=== PATIENT | female | born 1970 | race Caucasian/White ===

== ENCOUNTER 2018-04-09 18:00 | Outpatient (REF) | payer MEDICARE, MEDICAID, SELFPAY ==
[2018-04-09 22:55] LABS: ALT 25 U/L (12-78); AST 24 U/L (15-37); Albumin 3.2 g/dL (3.4-5.0); Alkaline Phosphatase 207 U/L (46-116); Anion Gap 4.8 mmol/L (3-11); BUN 15 mg/dL (7-18); Bilirubin, Total 0.3 mg/dL (0.2-1.0); CO2 29.2 mmol/L (21.0-32.0); CREATININE 0.83 mg/dL (0.55-1.02); Calcium 8.7 mg/dL (8.5-10.1); Chloride 104 mmol/L (98-107); Glucose 93 mg/dL (70-100); Magnesium 1.8 mg/dL (1.8-2.4); Potassium 4.3 mmol/L (3.5-5.1); Sodium 138 mmol/L (136-145); Total Protein 7.4 g/dL (6.4-8.2)
== END 2018-04-09 18:20 ==
LOC: NCHCN 18:00
PROVIDERS: PCP Family Medicine; Visit Provider Family Medicine
DX: K74.3 Primary biliary cirrhosis (principal); E87.6 Hypokalemia; E83.42 Hypomagnesemia
CPT/HCPCS: 80053; 83735

== ENCOUNTER 2018-08-06 16:54 | Outpatient (REF) | payer MEDICARE, MEDICAID, SELFPAY ==
[2018-08-06 21:17] LABS: HCT 37.6 % (36.0-46.0); Mean Corp. HGB Concentration 31.9 g/dL (32.0-36.0); Mean Corpuscular Hemoglobin 30.5 pg (27.0-33.0); Mean Corpuscular Volume 95.7 fL (80-95); Mean Platelet Volume 9.7 fL (8.0-11.0); Platelet Count 391 x1000/uL (130-400); RBC 3.93 m/cumm (4.00-5.20); White Blood Cell Count 9.85 k/cumm (4.4-10.8)
[2018-08-06 21:34] LABS: Hemoglobin A1C 5.6 % (4.5-6.2)
[2018-08-06 21:39] LABS: ALT 45 U/L (12-78); AST 38 U/L (15-37); Albumin 3.3 g/dL (3.4-5.0); Alkaline Phosphatase 200 U/L (46-116); BUN 18 mg/dL (7-18); Bilirubin, Total 0.3 mg/dL (0.2-1.0); Calcium 8.6 mg/dL (8.5-10.1); Chloride 104 mmol/L (98-107); Cholesterol 249 mg/dL (50-200); Estimated GFR 58.93 (mL/min/1.73m2); Glucose 106 mg/dL (70-100); HDL Cholesterol 53 mg/dL (40-60); LDL CHOLESTEROL 154 mg/dL (<100); Magnesium 1.8 mg/dL (1.8-2.4); Potassium 3.6 mmol/L (3.5-5.1); Sodium 141 mmol/L (136-145); TSH 3.16 uIU/mL (0.358-3.74); Total Protein 7.2 g/dL (6.4-8.2); Triglyceride 211 mg/dL (30-150)
[2018-08-06 21:51] LABS: PHOSPHORUS 3.3 mg/dL (2.6-4.7)
[2018-08-07 07:59] LABS: Vitamin D 25 Total 6.9 ng/ml (30-100)
== END 2018-08-06 17:14 ==
LOC: NCHCN 16:54
PROVIDERS: PCP Family Medicine; Visit Provider Family Medicine
DX: K74.3 Primary biliary cirrhosis (principal); E03.9 Hypothyroidism, unspecified; E83.42 Hypomagnesemia; E66.2 Morbid (severe) obesity with alveolar hypoventilation; Z86.2 Personal history of diseases of the blood and blood-forming organs and certain disorders involving the immune mechanism; Q61.3 Polycystic kidney, unspecified
CPT/HCPCS: 80053; 80061; 82306; 83721; 85027; 83036; 83735; 84100; 84443

== ENCOUNTER 2018-10-08 17:47 | Outpatient (REF) | payer MEDICARE, MEDICAID, SELFPAY ==
[2018-10-08 22:30] LABS: ALT 27 U/L (12-78); AST 24 U/L (15-37); Albumin 3.5 g/dL (3.4-5.0); Alkaline Phosphatase 190 U/L (46-116); Anion Gap 7.9 mmol/L (3-11); BUN 18 mg/dL (7-18); Bilirubin, Total 0.2 mg/dL (0.2-1.0); CO2 30.1 mmol/L (21.0-32.0); CREATININE 0.86 mg/dL (0.55-1.02); Calcium 9.1 mg/dL (8.5-10.1); Chloride 103 mmol/L (98-107); Glucose 76 mg/dL (70-100); Potassium 3.9 mmol/L (3.5-5.1); Sodium 141 mmol/L (136-145); Total Protein 7.1 g/dL (6.4-8.2)
[2018-10-09 06:43] LABS: Vitamin D 25 Total 22.5 ng/ml (30-100)
== END 2018-10-08 18:07 ==
LOC: NCHCN 17:47
PROVIDERS: PCP Family Medicine; Visit Provider Family Medicine
DX: K74.3 Primary biliary cirrhosis (principal); E55.9 Vitamin D deficiency, unspecified; Q61.3 Polycystic kidney, unspecified
CPT/HCPCS: 80053; 82306

== ENCOUNTER 2019-09-04 11:36 | Outpatient (REF) | payer MEDICARE, MEDICAID, SELFPAY ==
[2019-09-04 20:54] LABS: HCT 42.9 % (36.0-46.0); HGB 13.7 g/dL (12.0-15.5); Mean Corp. HGB Concentration 31.9 g/dL (32.0-36.0); Mean Corpuscular Hemoglobin 28.8 pg (27.0-33.0); Mean Corpuscular Volume 90.3 fL (80-95); Mean Platelet Volume 9.8 fL (8.0-11.0); Platelet Count 472 x1000/uL (130-400); Prothrombin Time 10.1 sec (9.3-11.0); RBC 4.75 m/cumm (4.00-5.20)
[2019-09-04 21:43] LABS: ALT 35 U/L (14-59); AST 25 U/L (15-37); Albumin 3.4 g/dL (3.4-5.0); Alkaline Phosphatase 274 U/L (46-116); Anion Gap 9.4 mmol/L (3-11); BUN 18 mg/dL (7-18); Bilirubin, Total 0.4 mg/dL (0.2-1.0); CO2 27.6 mmol/L (21.0-32.0); CREATININE 1.03 mg/dL (0.55-1.02); Calcium 8.7 mg/dL (8.5-10.1); Chloride 104 mmol/L (98-107); Estimated GFR 56.72 (mL/min/1.73m2); Folate 6.7 ng/mL (8.6-20.0); Glucose 92 mg/dL (74-106); Magnesium 1.6 mg/dL (1.8-2.4); Potassium 3.7 mmol/L (3.5-5.1); Sodium 141 mmol/L (136-145); TSH 3.38 uIU/mL (0.36-3.74); Total Protein 7.5 g/dL (6.4-8.2); Vitamin B12 413 pg/mL (193-986)
[2019-09-07 08:04] LABS: Vitamin D 25 Total 60.1 ng/ml (30-100)
== END 2019-09-04 11:56 ==
LOC: NCHCN 11:36
PROVIDERS: PCP Family Medicine; Visit Provider Family Medicine
DX: E55.9 Vitamin D deficiency, unspecified (principal); D75.89 Other specified diseases of blood and blood-forming organs; R53.83 Other fatigue; K74.3 Primary biliary cirrhosis; E83.42 Hypomagnesemia; E03.9 Hypothyroidism, unspecified; E66.3 Overweight
CPT/HCPCS: 80053; 82306; 85027; 82607; 82746; 83735; 84443; 85610

== ENCOUNTER 2019-12-04 16:42 | Outpatient (REF) | payer MEDICARE, MEDICAID, SELFPAY ==
[2019-12-04 22:14] LABS: ALT 35 U/L (14-59); AST 28 U/L (15-37); Albumin 3.5 g/dL (3.4-5.0); Alkaline Phosphatase 314 U/L (46-116); Anion Gap 7.5 mmol/L (3-11); BUN 14 mg/dL (7-18); Bilirubin, Total 0.5 mg/dL (0.2-1.0); CO2 28.5 mmol/L (21.0-32.0); CREATININE 0.92 mg/dL (0.55-1.02); Calcium 8.9 mg/dL (8.5-10.1); Chloride 102 mmol/L (98-107); Glucose 87 mg/dL (74-106); Magnesium 1.8 mg/dL (1.8-2.4); Potassium 4.1 mmol/L (3.5-5.1); Sodium 138 mmol/L (136-145); TSH 0.64 uIU/mL (0.36-3.74); Total Protein 7.7 g/dL (6.4-8.2)
== END 2019-12-04 17:02 ==
LOC: NCHCN 16:42
PROVIDERS: PCP Family Medicine; Visit Provider Family Medicine
DX: E03.9 Hypothyroidism, unspecified (principal); I10 Essential (primary) hypertension; E87.6 Hypokalemia; K59.09 Other constipation; K74.3 Primary biliary cirrhosis
CPT/HCPCS: 80053; 83735; 84443

== ENCOUNTER 2020-03-17 22:32 | Outpatient (REF) | payer MEDICARE, MEDICAID, SELFPAY ==
[2020-03-17 22:07] LABS: ALT 29 U/L (14-59); AST 25 U/L (15-37); Albumin 3.2 g/dL (3.4-5.0); Alkaline Phosphatase 223 U/L (46-116); Anion Gap 4.7 mmol/L (3-11); BUN 16 mg/dL (7-18); Bilirubin, Total 0.3 mg/dL (0.2-1.0); CO2 29.3 mmol/L (21.0-32.0); CREATININE 0.94 mg/dL (0.55-1.02); Calcium 8.3 mg/dL (8.5-10.1); Chloride 105 mmol/L (98-107); Glucose 79 mg/dL (74-106); Potassium 3.8 mmol/L (3.5-5.1); Sodium 139 mmol/L (136-145); Total Protein 6.9 g/dL (6.4-8.2)
[2020-03-19 10:18] LABS: HIV-1/2 Ag & Ab Screen Negative (Negative)
[2020-03-21 10:05] LABS: Hepatitis C Ab w Rflx HCV PCR Negative (Negative)
[2020-03-21 11:21] LABS: Syphilis Serology (RPR) Negative (Negative)
[2020-03-21 15:39] LABS: Chlamydia Result Negative (Negative); GC Result Negative (Negative)
== END 2020-03-17 22:52 ==
LOC: NCHCN 22:32
PROVIDERS: PCP Family Medicine; Visit Provider Family Medicine
DX: K74.3 Primary biliary cirrhosis (principal); Z11.59 Encounter for screening for other viral diseases; Z11.4 Encounter for screening for human immunodeficiency virus [HIV]; Z11.3 Encounter for screening for infections with a predominantly sexual mode of transmission
CPT/HCPCS: 80053; 86803; 87389; 87491; 87591; 86592

== ENCOUNTER 2020-08-25 20:46 | Outpatient (REF) | payer MEDICARE, MEDICAID, SELFPAY ==
[2020-08-25 21:21] LABS: ALT 47 U/L (14-59); AST 33 U/L (15-37); Albumin 3.6 g/dL (3.4-5.0); Alkaline Phosphatase 336 U/L (46-116); Anion Gap 7.2 mmol/L (3-11); BUN 21 mg/dL (7-18); Bilirubin, Total 0.5 mg/dL (0.2-1.0); CO2 28.8 mmol/L (21.0-32.0); CREATININE 0.96 mg/dL (0.55-1.02); Calcium 9.3 mg/dL (8.5-10.1); Calculated LDL 189 mg/dL (<100); Chloride 104 mmol/L (98-107); Cholesterol 281 mg/dL (<200); Glucose 83 mg/dL (74-106); HDL Cholesterol 50 mg/dL (40-60); Potassium 4.1 mmol/L (3.5-5.1); Sodium 140 mmol/L (136-145); Triglyceride 211 mg/dL (<150)
== END 2020-08-25 21:06 ==
LOC: NCHCN 20:46
PROVIDERS: PCP Family Medicine; Visit Provider Nurse Practitioner Family
DX: I10 Essential (primary) hypertension (principal); G45.9 Transient cerebral ischemic attack, unspecified
CPT/HCPCS: 80053; 80061

== ENCOUNTER 2020-11-09 12:22 | Outpatient (REF) | payer MEDICARE, MEDICAID, SELFPAY ==
[2020-11-09 22:45] LABS: ALT 62 U/L (14-59); AST 39 U/L (15-37); Albumin 3.2 g/dL (3.4-5.0); Alkaline Phosphatase 333 U/L (46-116); Anion Gap 8.4 mmol/L (3-11); BUN 20 mg/dL (7-18); Bilirubin, Total 0.4 mg/dL (0.2-1.0); CO2 31.6 mmol/L (21.0-32.0); CREATININE 0.9 mg/dL (0.55-1.02); Calcium 9.7 mg/dL (8.5-10.1); Calculated LDL 75 mg/dL (<100); Chloride 104 mmol/L (98-107); Cholesterol 151 mg/dL (<200); Folate > 20.0 ng/mL (8.6-20.0); Glucose 97 mg/dL (74-106); HDL Cholesterol 44 mg/dL (40-60); Sodium 144 mmol/L (136-145); TSH 0.08 uIU/mL (0.36-3.74); Total Protein 7.5 g/dL (6.4-8.2); Triglyceride 163 mg/dL (<150)
== END 2020-11-09 12:23 | disposition home or self-care (01) ==
LOC: NCHCN 12:22
PROVIDERS: PCP Family Medicine; Visit Provider Family Medicine
DX: D75.89 Other specified diseases of blood and blood-forming organs (principal); E03.9 Hypothyroidism, unspecified; E78.5 Hyperlipidemia, unspecified; E87.6 Hypokalemia; I10 Essential (primary) hypertension; E66.3 Overweight
CPT/HCPCS: 80053; 80061; 82746; 84443

== ENCOUNTER 2020-12-29 19:29 | Outpatient (REF) | payer MEDICARE, MEDICAID, SELFPAY ==
[2020-12-29 20:56] LABS: HCT 39.3 % (36.0-46.0); HGB 13.3 g/dL (11.2-15.7); MCH 30.6 pg (27.0-33.0); MCHC 33.8 % (32.0-36.0); MCV 90.6 fL (80-95); MPV 10.1 fL (8.0-11.0); Platelet Count 356 10^3/uL (130-400); RBC 4.34 10^6/uL (3.93-5.22); RDW 12.9 % (11.7-14.6); RDW-SD 42.5 fL; WBC 9.37 10^3/uL (4.4-10.8)
[2020-12-29 21:57] LABS: ALT 63 U/L (14-59); AST 45 U/L (15-37); Albumin 3.4 g/dL (3.4-5.0); Alkaline Phosphatase 413 U/L (46-116); Anion Gap 11.2 mmol/L (3-11); BUN 24 mg/dL (7-18); Bilirubin, Total 0.5 mg/dL (0.2-1.0); CO2 24.8 mmol/L (21.0-32.0); CREATININE 0.9 mg/dL (0.55-1.02); Chloride 106 mmol/L (98-107); Glucose 81 mg/dL (74-106); Potassium 4.1 mmol/L (3.5-5.1); Sodium 142 mmol/L (136-145); TSH 0.08 uIU/mL (0.36-3.74); Total Protein 7.7 g/dL (6.4-8.2)
== END 2020-12-29 19:30 | disposition home or self-care (01) ==
LOC: NCHCN 19:29
PROVIDERS: PCP Family Medicine; Visit Provider Family Medicine
DX: K74.3 Primary biliary cirrhosis (principal); E03.9 Hypothyroidism, unspecified
CPT/HCPCS: 80053; 85027; 84443; 85610

== ENCOUNTER 2021-03-06 21:19 | Outpatient (REF) | payer MEDICARE, MEDICAID, SELFPAY | END 2021-03-06 21:20 | disposition home or self-care (01) | LOC: NCHCN 21:19 | PROVIDERS: PCP Family Medicine; Visit Provider Family Medicine | DX: E03.9 Hypothyroidism, unspecified (principal) | CPT/HCPCS: 84443 ==

== ENCOUNTER 2021-05-05 13:17 | Outpatient (REF) | payer MEDICARE, MEDICAID, SELFPAY ==
[2021-05-05 20:35] LABS: TSH 0.15 uIU/mL (0.36-3.74)
== END 2021-05-05 13:18 | disposition home or self-care (01) ==
LOC: NCHCN 13:17
PROVIDERS: PCP Family Medicine; Visit Provider Family Medicine
DX: E03.9 Hypothyroidism, unspecified (principal)
CPT/HCPCS: 84443

== ENCOUNTER 2021-07-07 15:19 | Outpatient (REF) | payer MEDICARE, MEDICAID, SELFPAY ==
[2021-07-07 21:22] LABS: HCT 40.7 % (36.0-46.0); HGB 13.2 g/dL (11.2-15.7); MCH 29.9 pg (27.0-33.0); MCHC 32.4 % (32.0-36.0); MCV 92.3 fL (80-95); MPV 10.3 fL (8.0-11.0); Platelet Count 316 10^3/uL (130-400); RBC 4.41 10^6/uL (3.93-5.22); RDW 13.8 % (11.7-14.6); WBC 7.82 10^3/uL (4.4-10.8)
[2021-07-07 21:23] LABS: Prothrombin Time 10.2 sec (9.3-11.0)
[2021-07-07 21:45] LABS: ALT 67 U/L (14-59); AST 50 U/L (15-37); Albumin 3.4 g/dL (3.4-5.0); Alkaline Phosphatase 473 U/L (46-116); BUN 21 mg/dL (7-18); Bilirubin, Total 0.5 mg/dL (0.2-1.0); CREATININE 0.9 mg/dL (0.55-1.02); Calcium 9.5 mg/dL (8.5-10.1); Calculated LDL 96 mg/dL (<100); Chloride 102 mmol/L (98-107); Cholesterol 178 mg/dL (<200); Glucose 89 mg/dL (74-106); HDL Cholesterol 61 mg/dL (40-60); Potassium 4.2 mmol/L (3.5-5.1); Sodium 141 mmol/L (136-145); TSH (W/Ref FT4) 3.19 uIU/mL (0.36-3.74); Total Protein 7.9 g/dL (6.4-8.2); Triglyceride 107 mg/dL (<150)
== END 2021-07-07 15:20 | disposition home or self-care (01) ==
LOC: NCHCN 15:19
PROVIDERS: PCP Family Medicine; Visit Provider Family Medicine
DX: E78.5 Hyperlipidemia, unspecified (principal); E03.9 Hypothyroidism, unspecified; I10 Essential (primary) hypertension
CPT/HCPCS: 80053; 80061; 85027; 84443; 85610

== ENCOUNTER 2021-10-17 15:16 | Outpatient (REF) | payer MEDICARE, MEDICAID, SELFPAY ==
[2021-10-17 22:01] LABS: BUN 22 mg/dL (7-18); CREATININE 0.9 mg/dL (0.55-1.02); Calcium 9.1 mg/dL (8.5-10.1); Chloride 105 mmol/L (98-107); Glucose 83 mg/dL (74-106); Magnesium 1.6 mg/dL (1.8-2.4); Potassium 4.2 mmol/L (3.5-5.1); Sodium 142 mmol/L (136-145); TSH 9.43 uIU/mL (0.36-3.74)
== END 2021-10-17 15:17 | disposition home or self-care (01) ==
LOC: NCHCN 15:16
PROVIDERS: PCP Family Medicine; Visit Provider Family Medicine
DX: I10 Essential (primary) hypertension (principal)
CPT/HCPCS: 80048; 83735; 84443

== ENCOUNTER 2021-12-06 11:28 | Emergency (ER) | payer MEDICARE, MEDICAID, SELFPAY ==
[2021-12-06] VITALS (76 sets, daily range): BP systolic 111–130; BP diastolic 73–81; PULSE 69–87; RESP 11–22; TEMP 37.1; O2SAT 94–99
--- NOTE | 2021-12-06 11:15 | RT.EKG_ITS ---
APPROVED REPORT Exam: Resting ECG Reason for Exam: chest pain Patient Location: E HR:78 bpm ECG Measurements Heart Rate 78 AXIS VT 165 P 45 QRSd 96 QRS -42 QT 405 T 2 QTc 460 Conclusion Sinus rhythm...normal P axis, V-rate 60- 99 Left axis deviation...QRS axis (-30,-90) no stemi
--- NOTE | 2021-12-06 11:42 | ED.GENADUL_ITS ---
Discharge Plan Disposition Patient Disposition: HOME Condition: Stable Discharge Details Clinical Impression: Chest pain Primary Care Provider: Marsha Ramon ED Provider: Mukesh Preston Home Meds and New Rx's Prescriptions: Continued atorvastatin 40 mg Tablet 40 mg PO .QHS 0RF aspirin 81 mg Tablet,Delayed Release (Dr/Ec) 81 mg PO DAILY 0RF levothyroxine 50 mcg Tablet 50 mcg PO DAILY 0RF hydrochlorothiazide 25 mg Tablet 25 mg PO DAILY 0RF paroxetine HCl 40 mg Tablet 40 mg PO DAILY 0RF spironolactone 50 mg Tablet 50 mg PO DAILY 0RF magnesium oxide 250 mg magnesium Tablet 500 mg PO DAILY 0RF ursodiol 500 mg Tablet 500 mg PO BID 0RF dexlansoprazole [Dexilant] 60 mg Capsule,Biphase Delayed Releas 60 mg PO DAILY 0RF cholecalciferol (vitamin D3) [Vitamin D3] 125 mcg (5,000 unit) Tablet 125 mcg PO DAILY 0RF Discharge Instructions Instructions: Chest Pain (ED) Additional Instructions: your blood work and cat scans do not show any concerning findings at this time follow up with your primary care provider within 1 week if you feel more ill, have severe worsening pain or difficulty breathing return to the emergency department Medical Decision Making 51 yo female who reports history of hypothyroidism, cva, htn, who comes in with chest discomfort. She states yesterday she was in normal state of health, and today woke up and felt like there was a 'ball in her mid chest. She took sum tums and dexilant and had some improvement in her symptoms. Denies diaphoresis, radiation or dyspnea. She localizes the pain to the anterior and right chest. She is in no distress on exam speaking in full sentences. She has clear lungs, no murmurs, no leg swelling or jvd. She has abdominal tenderness in the ruq without guarding and no other tenderness elsewhere. Her symptoms could be due to gerd, heart score is 3, will obtain troponin. Wells low and given age can't use perc, but given the abdomen tenderness and some pleuritic pain will obtain cta of the chest to evaluate for pe and also ct abdomen/pelvis to evaluate for cholecystitis. No tearing back pain and normal vascular exam so doubt dissection labs and imaging unremarkble and she is asymptomatic. Symptoms started 5 hours prior to arrival so do not feel delta troponin indicated. Discussed with pt and she is comfortable with d/c and following up with pcp, return precautions given Differential Diagnosis Differential Diagnosis: gerd, nstemi, pe, chlecystitis Imaging Data Radiologic Study: Attestation: I personally reviewed and interpreted this imaging study as follows: Imaging: CT Scan Radiologist's impression: IMPRESSION: 1. No evidence of pulmonary embolism or other acute abnormality in the chest..? 2. No acute abdominal or pelvic process.? Lab Data Lab results reviewed: Yes I reviewed the patient's lab results. ECG Data Attestation: I personally reviewed and interpreted this ECG (s) as follows: Prior ECG tracings: not available for review Interpretation: sinus rhythm, rate of 78, no stemi HPI General Mode of arrival: ambulatory . Date/Time Provider Initiated Documentation: 12/06/21 11:28 . Limitations to Documentation: no limitations . Information obtained by: patient . History of Present Illness 51 year old F presents to the emergency department with the chief complaint of chest pain, described as mild, Patient started experiencing this hour(s) (5) and it has been now resolved. improves with No relieving factors improve symptom(s), No exacerbating factors reported . Patient notes no other symptoms.. Related Data Home Medications Medication Instructions Recorded Confirmed aspirin 81 mg tablet,delayed 81 mg PO DAILY 12/06/21 12/06/21 release atorvastatin 40 mg tablet 40 mg PO .QHS 12/06/21 12/06/21 cholecalciferol (vitamin D3) 125 125 mcg PO DAILY 12/06/21 12/06/21 mcg (5,000 unit) tablet (Vitamin D3) dexlansoprazole 60 mg 60 mg PO DAILY 12/06/21 12/06/21 capsule,biphase delayed release (Dexilant) hydrochlorothiazide 25 mg tablet 25 mg PO DAILY 12/06/21 12/06/21 levothyroxine 50 mcg tablet 50 mcg PO DAILY 12/06/21 12/06/21 magnesium oxide 500 mg PO DAILY 12/06/21 12/06/21 paroxetine HCl 40 mg tablet 40 mg PO DAILY 12/06/21 12/06/21 spironolactone 50 mg tablet 50 mg PO DAILY 12/06/21 12/06/21 ursodiol 500 mg tablet 500 mg PO BID 12/06/21 12/06/21 Allergies Allergy/AdvReac Type Severity Reaction Status Date / Time tramadol Allergy Unverified 12/06/21 11:37 General Stated Complaint: Chest Pain JONI: 2 Review of Systems All systems reviewed & are unremarkable except as noted in HPI and below Constitutional Constitutional: Denies chills, Denies fever(s) and Denies weakness Eyes Eyes: Denies loss of vision ENT Ears, Nose, Mouth, and Throat: Denies change in voice Cardiovascular Cardiovascular: Denies dyspnea Respiratory Respiratory: Denies cough and Denies dyspnea Gastrointestinal Gastrointestinal: Denies abdominal pain, Denies nausea and Denies vomiting Genitourinary Genitourinary: Denies dysuria Musculoskeletal Musculoskeletal: Denies joint swelling Integumentary/Breasts Skin/Breast: Denies rash Neurologic Neurologic: Denies loss of vision and Denies weakness PFSH All Active Problems (Updated 12/06/21 @ 13:35 by Mukesh Preston MD) Chest pain (Acute) Social History Smoking/Tobacco Use Status: Former Tobacco Use Smoking risk assessment performed?: Yes Alcohol Intake: never Substance use type: does not use Exam Const General: no acute distress Orientation: alert HENMT Head: normal to inspection Ears: external ears normal General nose exam: external nose normal Mouth: moist mucous membranes Eyes General: appearance normal, both eyes and all related structures Neck Neck: normal visual inspection Resp Effort & Inspection: normal respiratory effort and able to speak in complete sentences Cardio Rate: regular rate GI Palpation: soft and nontender Skin General skin exam: no rashes or lesions noted Neuro General: patient alert and patient oriented x3 Extrem General: normal to inspection Psych Mental Status: mental status grossly normal Course Vital Signs Vital signs: Vital Signs Temperature 37.1 C 12/06/21 11:32 Pulse 80 12/06/21 11:32 Respiratory Rate 16 12/06/21 11:32 Blood Pressure 115/75 12/06/21 11:32 Pulse Oximetry 98 12/06/21 11:32 Temperature 37.1 C 12/06/21 11:32 Temperature Source Skin 12/06/21 11:32 Pulse 80 12/06/21 11:32 Respiratory Rate 16 12/06/21 11:32 Respiratory Effort 12/06/21 11:32 Blood Pressure 115/75 12/06/21 11:32 Blood Pressure Position Supine 12/06/21 11:32 Pulse Oximetry 98 12/06/21 11:32 Oxygen Delivery Method Nasal Cannula 12/06/21 11:32 Pain Level 0 12/06/21 11:32
[2021-12-06 11:45] LABS: Abs Immature Grans 0.02 10^3/uL (0.0-0.06); Absolute Basophil Count 0.01 10^3/uL (0.0-0.2); Absolute Eosinophil Count 0.02 10^3/uL (0.0-0.7); Absolute Lymphocyte Count 0.95 10^3/uL (1.2-3.4); Absolute Monocyte Count 0.69 10^3/uL (0.1-0.8); Absolute Neutrophil Count 6.09 10^3/uL (1.2-6.7); Basophils % 0.1; Eosinophils % 0.3; HCT 41.8 % (36.0-46.0); HGB 13.8 g/dL (11.2-15.7); Immature Grans % 0.3; Lymphocytes % 12.2; MCH 30.6 pg (27.0-33.0); MCV 93 fL (80-95); MPV 9.4 fL (8.0-11.0); Monocytes % 8.9; Neutrophils % 78.2; Platelet Count 292 10^3/uL (130-400); RBC 4.51 10^6/uL (3.93-5.22); RDW 13.1 % (11.7-14.6); RDW-SD 44.3 fL; WBC 7.78 10^3/uL (4.4-10.8)
--- NOTE | 2021-12-06 11:45 | DI.CT_ITS ---
Exam(s) CT CHEST PE ABD PELVIS W EXAM: CT CHEST PE ABD PELVIS W CLINICAL HISTORY: pleuritic right sided chest and upper abdomen pain. TECHNIQUE: Imaging Protocol: Axial CT angiography was performed with multi-slice acquisition and mu lti-planar and/or 3D reconstructions. CONTRAST MATERIAL: Intravenous: Omnipaque 350 Contrast volume:100 ml COMPARISON: No exams were available for comparison FINDINGS: CHEST: Pulmonary Arteries: No evidence of filling defect to suggest pulmonary emboli. Tracheobronchial tree: Patent where visualized. Mediastinum and Mindy: No dominant adenopathy or fluid collection. Pulmonary parenchyma: Expiratory changes. No consolidation or dominant measurable mass. No pre sales architect ural distortion. Pleura: No effusion or pneumothorax. Heart: The heart is not dilated. Mild coronary artery calcifications are seen. Aorta: Thoracic aorta non-dilated. Bones: Normal. ABDOMEN: Liver: Normal density. No measurable mass. Portal, Superior Mesenteric, and Splenic Veins: Unremarkable. Gallbladder and Biliary Tract: Status post cholecystectomy. No radiodense calculus or dilation. Pancreas: Normal density, no abnormal calcifications or inflammatory process. Spleen: Normal. Adrenals: No masses seen. Kidneys: Normal size, contour and axis. No radiodense stones or obstructive uropathy. Innumerable bi lateral cysts. Two large cysts are seen at the upper pole of the right kidney, measuring 5.5 and 6.5 cm in size. The surgical clips are are noted near the right kidney. No suspicious masses seen. Abdominal Aorta: Abdominal portion non-dilated. Minimal atherosclerotic changes. Bowel: No obstruction or bowel wall thickening. Appendix is unremarkable. Peritoneal Cavity: No ascites, collection or mesenteric inflammatory response. Lymph Nodes: Within normal limits. Bones: Unremarkable for age.. Soft Tissues: Tiny fatty containing hernia above the level of the umbilicus. PELVIS: Bladder: Symmetric distention, no gross wall thickening. Reproductive Organs: Status post hysterectomy. Lymph Nodes: Within normal limits. Bones: Within normal limits. IMPRESSION: 1. No evidence of pulmonary embolism or other acute abnormality in the chest.. 2. No acute abdominal or pelvic process. RADIATION DOSE DELIVERED: 1,359.13mGy.cm Total DLP DATA REPOSITORY: All CT scans at this facility are submitted to the National Radiology Data Registry (NRDR) Dose Index Registry (DIR) with the [employer] ([employer]). RADIATION OPTIMIZATION: All CT scans at this facility use at least one of these dose optimization te chniques: automated exposure control; mA and/or kV adjustment per patient size (includes targeted exa ms where dose is matched to clinical indication); or iterative reconstruction.
[2021-12-06 12:08] LABS: ALT 60 U/L (14-59); AST 55 U/L (15-37); Albumin 3.3 g/dL (3.4-5.0); Alkaline Phosphatase 397 U/L (46-116); Anion Gap 9.2 mmol/L (3-11); BUN 24 mg/dL (7-18); Bilirubin, Total 0.6 mg/dL (0.2-1.0); CO2 26.8 mmol/L (21.0-32.0); CREATININE 1.2 mg/dL (0.55-1.02); Calcium 9.4 mg/dL (8.5-10.1); Chloride 102 mmol/L (98-107); Estimated GFR 46.99 (mL/min/1.73m2); Glucose 105 mg/dL (74-106); Lipase 94 U/L (73-393); Magnesium 2.5 mg/dL (1.8-2.4); Potassium 3.1 mmol/L (3.5-5.1); Sodium 138 mmol/L (136-145); TSH (W/Ref FT4) 0.63 uIU/mL (0.36-3.74); Total Protein 8.4 g/dL (6.4-8.2); Troponin I < 50 ng/L (<or=60)
[2021-12-06] MEDS: Omnipaque 350 MG/ML 100 ML BTL IJ (12:47)
[2021-12-06] MEDS: Normal Saline Flush 10 ML SYR IVP (12:48)
== END 2021-12-06 13:49 | disposition home or self-care (01) ==
PROVIDERS: Emergency Provider Emergency Medicine; PCP Family Medicine
DX: R07.9 Chest pain, unspecified (principal); R10.10 Upper abdominal pain, unspecified; R07.81 Pleurodynia; E03.9 Hypothyroidism, unspecified
CPT/HCPCS: 36415; 71275; 74177; 80053; 83690; 93005; 99285; 83735; 84443; 84484; 85025; 93010; 99284; J3490

== ENCOUNTER 2022-01-15 16:39 | Outpatient (REF) | payer MEDICARE, MEDICAID, SELFPAY ==
[2022-01-15 14:18] LABS: Anion Gap 9.8 mmol/L (3-11); BUN 22 mg/dL (7-18); CO2 29.2 mmol/L (21.0-32.0); Chloride 102 mmol/L (98-107); Glucose 103 mg/dL (74-106); Magnesium 1.7 mg/dL (1.8-2.4); Potassium 3.9 mmol/L (3.5-5.1); Sodium 141 mmol/L (136-145)
== END 2022-01-15 16:40 | disposition home or self-care (01) ==
LOC: NCHCN 16:39
PROVIDERS: PCP Family Medicine; Visit Provider Family Medicine
DX: E83.42 Hypomagnesemia (principal); I10 Essential (primary) hypertension; N18.1 Chronic kidney disease, stage 1
CPT/HCPCS: 80048; 83735

== ENCOUNTER 2022-11-30 13:42 | Outpatient (REF) | payer MEDICARE, MEDICAID, SELFPAY ==
[2022-11-30 21:37] LABS: HCT 40.6 % (36.0-46.0); HGB 13.8 g/dL (11.2-15.7); MCV 91 fL (80-95); MPV 9.8 fL (8.0-11.0); Platelet Count 387 10^3/uL (130-400); RBC 4.45 10^6/uL (3.93-5.22); RDW 13.2 % (11.7-14.6); RDW-SD 43.9 fL; WBC 8.17 10^3/uL (4.4-10.8)
[2022-11-30 21:55] LABS: ALT 50 U/L (14-59); AST 40 U/L (15-37); Albumin 3.2 g/dL (3.4-5.0); Alkaline Phosphatase 430 U/L (46-116); Anion Gap 6.8 mmol/L (3-11); BUN 21 mg/dL (7-18); Bilirubin, Total 0.4 mg/dL (0.2-1.0); CO2 30.2 mmol/L (21.0-32.0); CREATININE 1.1 mg/dL (0.55-1.02); Calcium 9.5 mg/dL (8.5-10.1); Calculated LDL 107 mg/dL (<100); Chloride 103 mmol/L (98-107); Cholesterol 195 mg/dL (<200); Estimated GFR 59.71 (mL/min/1.73m2); Glucose 144 mg/dL (74-106); HDL Cholesterol 62 mg/dL (40-60); Magnesium 1.5 mg/dL (1.8-2.4); Potassium 3.6 mmol/L (3.5-5.1); Sodium 140 mmol/L (136-145); TSH 1.05 uIU/mL (0.36-3.74); Total Protein 8.4 g/dL (6.4-8.2); Triglyceride 132 mg/dL (<150)
[2022-11-30 22:09] LABS: Vitamin D 25 Total 80.7 ng/mL (30-100)
== END 2022-11-30 13:43 | disposition home or self-care (01) ==
LOC: NCHCN 13:42
PROVIDERS: PCP Family Medicine; Visit Provider Family Medicine
DX: D64.9 Anemia, unspecified (principal); I10 Essential (primary) hypertension; E03.9 Hypothyroidism, unspecified; E78.5 Hyperlipidemia, unspecified; E55.9 Vitamin D deficiency, unspecified
CPT/HCPCS: 80053; 80061; 82306; 85027; 83735; 84443

== ENCOUNTER 2022-12-11 17:48 | Outpatient (REF) | payer MEDICARE, MEDICAID, SELFPAY ==
[2022-12-11 14:53] LABS: Glucose 135 mg/dL (74-106)
[2022-12-11 15:01] LABS: Hemoglobin A1C 7.7 % (<5.7)
== END 2022-12-11 17:49 | disposition home or self-care (01) ==
LOC: NCHCN 17:48
PROVIDERS: PCP Family Medicine; Visit Provider Family Medicine
DX: R73.01 Impaired fasting glucose (principal)
CPT/HCPCS: 82947; 83036

== ENCOUNTER 2023-01-10 20:50 | Outpatient (REF) | payer MEDICARE, MEDICAID, SELFPAY | END 2023-01-10 20:51 | disposition home or self-care (01) | LOC: NCHCN 20:50 | PROVIDERS: PCP Family Medicine; Visit Provider Family Medicine | DX: R30.0 Dysuria (principal) | CPT/HCPCS: 87086 ==

== ENCOUNTER 2023-09-27 18:00 | Outpatient (REF) | payer MEDICARE, MEDICAID, SELFPAY ==
[2023-09-27 21:15] LABS: Abs Immature Grans 0.03 10^3/uL (0.0-0.06); Absolute Basophil Count 0.06 10^3/uL (0.0-0.2); Absolute Lymphocyte Count 1.46 10^3/uL (1.2-3.4); Absolute Monocyte Count 0.71 10^3/uL (0.1-0.8); Absolute Neutrophil Count 7.09 10^3/uL (1.2-6.7); Basophils % 0.6; Eosinophils % 2.1; HCT 40.1 % (36.0-46.0); HGB 13.7 g/dL (11.2-15.7); Immature Grans % 0.3; Lymphocytes % 15.3; MCH 31.2 pg (27.0-33.0); MCHC 34.2 % (32.0-36.0); MCV 91 fL (80-95); MPV 9.9 fL (8.0-11.0); Monocytes % 7.4; Neutrophils % 74.3; Platelet Count 355 10^3/uL (130-400); RBC 4.39 10^6/uL (3.93-5.22); RDW 13.1 % (11.7-14.6); RDW-SD 43.9 fL; WBC 9.55 10^3/uL (4.4-10.8)
[2023-09-27 21:30] LABS: Hemoglobin A1C 7.2 % (<5.7)
[2023-09-27 21:36] LABS: ALT 39 U/L (14-59); AST 29 U/L (15-37); Albumin 3.4 g/dL (3.4-5.0); Alkaline Phosphatase 361 U/L (46-116); Anion Gap 10.3 mmol/L (3-11); BUN 18 mg/dL (7-18); Bilirubin, Total 0.4 mg/dL (0.2-1.0); CO2 29.7 mmol/L (21.0-32.0); CREATININE 1.1 mg/dL (0.55-1.02); Calcium 9.8 mg/dL (8.5-10.1); Calculated LDL 76 mg/dL (<100); Chloride 100 mmol/L (98-107); Cholesterol 203 mg/dL (<200); Estimated GFR 59.34 (mL/min/1.73m2); Glucose 216 mg/dL (74-106); HDL Cholesterol 63 mg/dL (40-60); Magnesium 1.3 mg/dL (1.8-2.4); Potassium 3.7 mmol/L (3.5-5.1); Sodium 140 mmol/L (136-145); TSH 0.23 uIU/mL (0.36-3.74); Total Protein 7.8 g/dL (6.4-8.2); Triglyceride 320 mg/dL (<150)
== END 2023-09-27 18:01 | disposition home or self-care (01) ==
LOC: NCHCN 18:00
PROVIDERS: PCP Family Medicine; Referring Provider Family Medicine; Visit Provider Family Medicine
DX: E11.9 Type 2 diabetes mellitus without complications (principal); E55.9 Vitamin D deficiency, unspecified
CPT/HCPCS: 80053; 80061; 82306; 83036; 83735; 84443; 85025

== ENCOUNTER 2023-12-18 10:17 | Outpatient (REF) | payer MEDICARE, MEDICAID, SELFPAY ==
[2023-12-18 15:25] LABS: Magnesium 1.4 mg/dL (1.8-2.4); TSH 3.92 uIU/Ml (0.36-3.74)
== END 2023-12-18 10:18 | disposition home or self-care (01) ==
LOC: NCHCN 10:17
PROVIDERS: PCP Family Medicine; Visit Provider Family Medicine
DX: E03.9 Hypothyroidism, unspecified (principal); E83.42 Hypomagnesemia
CPT/HCPCS: 83735; 84443

== ENCOUNTER 2024-03-09 18:28 | Outpatient (REF) | payer MEDICARE, MEDICAID, SELFPAY ==
[2024-03-09 21:36] LABS: TSH 2.04 uIU/Ml (0.36-3.74)
== END 2024-03-09 18:29 | disposition home or self-care (01) ==
LOC: NCHCN 18:28
PROVIDERS: PCP Family Medicine; Visit Provider Family Medicine
DX: E03.9 Hypothyroidism, unspecified (principal)
CPT/HCPCS: 84443

== ENCOUNTER 2024-04-21 03:36 | Outpatient (CLI) | payer MEDICARE, MEDICAID, SELFPAY ==
--- NOTE | 2024-04-22 08:57 | W.NUTRFU ---
Date of service: 04/21/24 Time of Service: 14:00 Nutrition Note NOTE: Malena visits to go over some nutrition guidance for diabetes management and getting her glucose numbers closer to goal. Most recent A1C was 9.7% and Malena states her morning fasting capillary glucose has been increasingly concerning. She checks her glucose most morning before eating. We discussed recommended kcal goal of ~1600 and how about 150g of CHO should be her target. We reviewed materials that outlined which foods are considered carbohydrates and how much a 15 gram serving size is between different food choices. We reviewed she can count grams (150g goal) or she can count servings (10servings) depending on what is easier for her. We discussed the non-carb foods and how important to fill in the plate with these after limiting to about 2-3 servings per meal and 1 at snacks. Encouraged Malena to set up a goal for her pattern of eating, as currently she eats 2 meals and multiple snacks daily. Encouraged a meal soon after waking up with 30g protein and some carbs to get a good start for the day using meat, cottage cheese, protein powder, nuts and seeds, eggs. She is reluctant to begin any diabetes meds at this time - I supported her autonomy to feel reluctant but offered reassurance that med management can save her from complications and it is always possible to stop meds if lifestyle changes are significant enough to encourage better glycemic control. She will continue to consider. Malena does not currently exercise, and reports stress management and sleep are more on the poor end of the spectrum lately. Encouraged her to work in this area as well and consider strength exercises like resistance bands while watching tv and walking/moving as much as possible. We did discuss added sugar and how eating from 6-11pm (she eats dinner at 5pm usually) usually involves food choices with too much sugar and too many carbs. We outlined 25g or less in this category and identified sources in her diet in peanut butter, sugar added to her coffees, sweet tea. etc... Malena took some materials home as well as my card to contact for any desire to follow up, or answer questions over the phone. Time Spent in Nutritional Counseling and Treatment: 45 min
== END 2024-04-21 03:37 | disposition home or self-care (01) ==
LOC: DS 03:43
PROVIDERS: PCP Family Medicine; Visit Provider Dietitian, Registered
DX: E11.9 Type 2 diabetes mellitus without complications (principal)
CPT/HCPCS: 00123; 97802

== ENCOUNTER 2024-05-29 12:51 | Outpatient (REF) | payer MEDICARE, MEDICAID, SELFPAY ==
[2024-05-29 14:41] LABS: ALT 49 U/L (14-59); AST 37 U/L (15-37); Albumin 3.3 g/dL (3.4-5.0); Alkaline Phosphatase 369 U/L (46-116); Anion Gap 9.6 mmol/L (3-11); BUN 21 mg/dL (7-18); CO2 27.4 mmol/L (21.0-32.0); CREATININE 1.1 mg/dL (0.55-1.02); Calcium 9.5 mg/dL (8.5-10.1); Chloride 101 mmol/L (98-107); Estimated GFR 59.34 (mL/min/1.73m2); Glucose 264 mg/dL (74-106); Magnesium 1.4 mg/dL (1.8-2.4); Potassium 3.6 mmol/L (3.5-5.1); Sodium 138 mmol/L (136-145); Total Protein 8.1 g/dL (6.4-8.2)
[2024-05-29 22:06] LABS: COMMENT (LAB VIEW ONLY) 43.88 mg/dL
== END 2024-05-29 12:52 | disposition home or self-care (01) ==
LOC: NCHCN 12:51
PROVIDERS: PCP Family Medicine; Visit Provider Family Medicine
DX: E11.9 Type 2 diabetes mellitus without complications (principal); E87.6 Hypokalemia; K74.3 Primary biliary cirrhosis
CPT/HCPCS: 80053; 82043; 82570; 83735

== ENCOUNTER 2024-06-09 16:19 | Outpatient (REF) | payer MEDICARE, MEDICAID, SELFPAY ==
[2024-06-09 22:37] LABS: Anion Gap 9.9 mmol/L (3-11); BUN 29 mg/dL (7-18); CO2 27.1 mmol/L (21.0-32.0); CREATININE 1.3 mg/dL (0.55-1.02); Chloride 104 mmol/L (98-107); Estimated GFR 48.56 (mL/min/1.73m2); Glucose 135 mg/dL (74-106); Potassium 4.4 mmol/L (3.5-5.1); Sodium 141 mmol/L (136-145)
== END 2024-06-09 16:20 | disposition home or self-care (01) ==
LOC: NCHCN 16:19
PROVIDERS: PCP Family Medicine; Visit Provider Family Medicine
DX: I10 Essential (primary) hypertension (principal)
CPT/HCPCS: 80048

== ENCOUNTER 2024-11-19 19:32 | Outpatient (REF) | payer MEDICARE, MEDICAID, SELFPAY ==
[2024-11-19 21:54] LABS: ALT 117 U/L (14-59); AST 73 U/L (15-37); Albumin 3.6 g/dL (3.4-5.0); Alkaline Phosphatase 554 U/L (46-116); Anion Gap 9.3 mmol/L (3-11); BUN 38 mg/dL (7-18); Bilirubin, Total 0.5 mg/dL (0.2-1.0); CO2 28.7 mmol/L (21.0-32.0); CREATININE 1.5 mg/dL (0.55-1.02); Calcium 10.3 mg/dL (8.5-10.1); Chloride 101 mmol/L (98-107); Estimated GFR 40.65 (mL/min/1.73m2); Glucose 152 mg/dL (74-106); Potassium 4.4 mmol/L (3.5-5.1); Sodium 139 mmol/L (136-145); Total Protein 8.6 g/dL (6.4-8.2)
== END 2024-11-19 19:33 | disposition home or self-care (01) ==
LOC: NCHCN 19:32
PROVIDERS: PCP Family Medicine; Visit Provider Family Medicine
DX: K74.3 Primary biliary cirrhosis (principal)
CPT/HCPCS: 80053

== ENCOUNTER 2025-02-18 18:18 | Outpatient (REF) | payer MEDICARE, MEDICAID, SELFPAY ==
[2025-02-18 21:51] LABS: HCT 39.7 % (36.0-46.0); HGB 13.0 g/dL (11.2-15.7); MCH 30.6 pg (27.0-33.0); MCHC 32.7 % (32.0-36.0); MCV 93 fL (80-95); MPV 10.0 fL (8.0-11.0); Platelet Count 424 10^3/uL (130-400); RBC 4.25 10^6/uL (3.93-5.22); RDW 13.9 % (11.7-14.6); RDW-SD 47.8 fL; WBC 9.37 10^3/uL (4.4-10.8)
[2025-02-18 22:14] LABS: ALT 106 U/L (14-59); AST 70 U/L (15-37); Albumin 3.6 g/dL (3.4-5.0); Alkaline Phosphatase 514 U/L (46-116); Anion Gap 10.4 mmol/L (3-11); BUN 39 mg/dL (7-18); Bilirubin, Total 0.5 mg/dL (0.2-1.0); CO2 25.6 mmol/L (21.0-32.0); Calcium 10.2 mg/dL (8.5-10.1); Chloride 100 mmol/L (98-107); Estimated GFR 48.26 (mL/min/1.73m2); Glucose 166 mg/dL (74-106); Potassium 4.7 mmol/L (3.5-5.1); Sodium 136 mmol/L (136-145); TSH 0.43 uIU/mL (0.36-3.74); Total Protein 8.7 g/dL (6.4-8.2)
== END 2025-02-18 18:19 | disposition home or self-care (01) ==
LOC: NCHCN 18:18
PROVIDERS: PCP Family Medicine; Visit Provider Family Medicine
DX: K74.3 Primary biliary cirrhosis (principal); E03.9 Hypothyroidism, unspecified; I10 Essential (primary) hypertension
CPT/HCPCS: 80053; 85027; 84443